=== PATIENT | male | born 1950 | race Caucasian/White ===

== ENCOUNTER 2017-12-08 05:54 | Day surgery (SDC) | payer OTHER ==
[~2017-12-08] VITALS: Ht 167.6 cm; Wt 93.5 kg
[2017-12-08] MEDS ORDERED: LACTATED RINGERS 1,000 ML IV SCH (06:41)
[2017-12-08] MEDS ORDERED: LIDOCAINE-MPF 1%, 2ML INFIL ONE (07:00)
[2017-12-08 07:10] VITALS: BP 144/88
[2017-12-08] MEDS ORDERED: B12 PO (07:29)
[2017-12-08] MEDS ORDERED: METF500T4 PO (07:29)
[2017-12-08] MEDS ORDERED: METO-264 PO (07:29)
[2017-12-08] MEDS ORDERED: WARF5TAB PO (07:29)
[2017-12-08] MEDS ORDERED: VITAMIN D PO (07:29)
[2017-12-08] MEDS ORDERED: DIGOXIN PO (07:29)
[2017-12-08 07:51] LABS: PROTHROMBIN TIME 10.3 Seconds (9.6-11.5)
[2017-12-08] MEDS ORDERED: ESMOLOL 100 MG/10 ML ONE (07:57)
[2017-12-08] MEDS ORDERED: METOPROLOL 1 MG/ML, 5ML ONE (07:57)
[2017-12-08] MEDS ORDERED: PROPOFOL 10 MG/ML, 20ML ONE (07:57)
[2017-12-08] MEDS ORDERED: PHENYLEPHRINE 10 MG/ML ONE (07:57)
[2017-12-08] MEDS ORDERED: SUCCINYLCHOLINE 20 MG/ML, 10ML ONE (07:57)
[2017-12-08] MEDS ORDERED: FENTANYL PF 100 MCG/2ML ONE (07:59)
[2017-12-08] MEDS ORDERED: METOPROLOL 1 MG/ML, 5ML IV PRN (09:30)
[2017-12-08] MEDS ORDERED: ONDANSETRON 2MG/ML, 2ML IVPush PRN (09:30)
[2017-12-08] MEDS ORDERED: FENTANYL PF 100 MCG/2ML IV PRN (09:30)
== END 2017-12-08 10:18 ==
LOC: OUT 05:54
PROVIDERS: ATTEND Internal Medicine
DX: K31.7 Polyp of stomach and duodenum (principal); K31.89 Other diseases of stomach and duodenum; K86.89 Other specified diseases of pancreas; E11.9 Type 2 diabetes mellitus without complications; I10 Essential (primary) hypertension; E66.9 Obesity, unspecified; Z68.33 Body mass index [BMI] 33.0-33.9, adult; Z79.01 Long term (current) use of anticoagulants
CPT/HCPCS: 36415; 43239; 43259; 82962; 85610; 85730; 88305; 93005; J0330; J2370; J2704; J3010; J3490; J7120